=== PATIENT | female | born 1965 | race Caucasian/White ===

== ENCOUNTER → 2016-08-02 | Outpatient (CLI) | payer OTHER ==
--- NOTE | 2016-08-02 12:08 | REP ---
MRI RIGHT ELBOW: TECHNIQUE: T1 and T2-weighted imaging in the axial, coronal and sagittal planes. There is moderate to severe increased signal involving the common flexor tendon at the medial humeral epicondyle, consistent with moderate to severe epicondylitis and partial tear of the tendon. The common extensor tendon laterally demonstrates no abnormal signal. The medial and lateral collateral ligaments are intact. There is a tiny focus of increased signal on T2-weighted images in the distal end of the biceps tendon at its insertion site suggesting a small partial tear. Triceps is intact. Brachialis and brachial radialis are unremarkable in appearance. No ganglion cyst is seen. There is a small joint effusion. No other soft tissue signal abnormality is seen. No osteochondral defect is seen. IMPRESSION: Moderate to severe medial epicondylitis with partial tear of the common flexor tendon. Collateral ligaments are intact. Possible tiny partial tear of the distal end of the biceps tendon. Small joint effusion. Signed by Monster Wooten MD 08/02/2016 04:56 P
== END ==
LOC: M RAD 10:13
PROVIDERS: ATTEND Orthopaedic Surgery
DX: M77.11 Lateral epicondylitis, right elbow (principal); M25.421 Effusion, right elbow